=== PATIENT | female | born 1975 | race Caucasian/White ===

== ENCOUNTER 2016-06-01 18:09 | Observation (INO) | payer OTHER ==
[~2016-06-01] VITALS: Ht 167.6 cm; Wt 98.2 kg
[~2016-06-01 18:09] MED LIST: LAMI200T PO; LEVO125T4 PO; QUET1TAB9 PO; ZYRTTAB2 PO
[2016-06-01 18:16] VITALS: BP 130/86; PULSE 84; RESP 16; TEMP 98.7; O2SAT 97
[2016-06-01] MEDS ORDERED: PHEN1TAB84 PO (18:35)
[2016-06-01] MEDS ORDERED: MELA5TAB15 PO (18:35)
[2016-06-01] MEDS ORDERED: SERO400T PO (18:35)
--- NOTE | 2016-06-01 18:52 | PD ---
HPI Chief Complaint: Foreign Body Time Seen by Provider: 18:42 Travel History International Travel<30 days: No Contact w/Intl Traveler<30days: No Traveled to known affect area: No History of Present Illness HPI 40-year-old female is concerned that she has chicken cartilage or bone stuck in her throat. She says that yesterday around 2:00 she was eating and she felt that she swallowed something that was most likely cartilage. She feels like its been there ever since. She points to the sternal notch as the site. She has not been short of breath. She has been eating today when she says she has to cut her food into small pieces and chew it quite a bit. She has not been able to take her pills. PFSH Past Medical History ?: Not LMP: 05/17/16 Social History Alcohol Use: No Tobacco Use: No Substance Use: No Allergies-Medications (Allergen,Severity, Reaction): Coded Allergies: Clindamycin (Verified Allergy, Severe, anaphalaxis, 06/01/16) Keflex (Verified Allergy, Severe, anaphalaxis, 06/01/16) Penicillin (Verified Allergy, Severe, anaphalaxis, 06/01/16) Amoxicillin (Verified Allergy, Mild, Sore throat, hurt to swallow , ) Reported Meds & Prescriptions Reported Meds & Active Scripts Active Reported Adipex-P (Phentermine HCl) 37.5 Mg Tab Unknown Dose PO DAILY Melatonin 5 Mg Tab 5 Mg PO HS Seroquel (Quetiapine Fumarate) 400 Mg Tab 400 Mg PO DAILY Levothyroxine (Levothyroxine Sodium) 125 Mcg Tab 150 Mcg PO DAILY Lamictal (Lamotrigine) 200 Mg Tab 400 Mg PO DAILY Review of Systems General / Constitutional: No: Fever, Chills Eyes: No: Diploplia, Blurred Vision HENT: No: Headaches, Vertigo Cardiovascular: No: Chest Pain or Discomfort, Palpitations Respiratory: No: Cough, Shortness of Breath Gastrointestinal: Positive: Dysphagia Genitourinary: No: Urgency, Frequency Musculoskeletal: No: Myalgias, Arthralgias Skin: No Rash, No Itching Neurologic: No: Weakness, Dizziness Psychiatric: Positive: Mood Disorder Hematologic/Lymphatic: No: Easy Bruising Physical Exam Narrative GENERAL: Well-developed female SKIN: Focused skin assessment warm/dry. HEAD: Atraumatic. Normocephalic. EYES: Pupils equal and round. No scleral icterus. No injection or drainage. ENT: No nasal bleeding or discharge. Mucous membranes pink and moist. NECK: Trachea midline. No JVD. No palpable mass CARDIOVASCULAR: Regular rate and rhythm. No murmur appreciated. RESPIRATORY: No accessory muscle use. Clear to auscultation. Breath sounds equal bilaterally. GASTROINTESTINAL: Abdomen soft, non-tender, nondistended. Hepatic and splenic margins not palpable. MUSCULOSKELETAL: No obvious deformities. No clubbing. No cyanosis. No edema. NEUROLOGICAL: Awake and alert. No obvious cranial nerve deficits. Motor grossly within normal limits. Normal speech. PSYCHIATRIC: Appropriate mood and affect; insight and judgment normal. Data Data Last Documented VS Vital Signs Date Time Temp Pulse Resp B/P Pulse Ox O2 Delivery O2 Flow Rate FiO2 06/01/16 18:16 98.7 84 16 130/86 97 Orders Complete Blood Count With Diff (06/01/16 19:08) Basic Metabolic Panel (Bmp) (06/01/16 19:08) Ct Soft Tiss Neck W Iv Cont (06/01/16 19:08) Iohexol 350 Inj (Omnipaque 350 Inj) (06/01/16 20:38) Levofloxacin 750 Mg Premix Inj (Levaquin (06/01/16 21:15) Admit Order (Ed Use Only) (06/01/16 21:04) Labs Laboratory Tests Test 06/01/16 19:30 White Blood Count 7.8 TH/MM3 Red Blood Count 4.60 MIL/MM3 Hemoglobin 11.7 GM/DL Hematocrit 35.5 % Mean Corpuscular Volume 77.1 FL Mean Corpuscular Hemoglobin 25.5 PG Mean Corpuscular Hemoglobin 33.0 % Concent Red Cell Distribution Width 14.7 % Platelet Count 323 TH/MM3 Mean Platelet Volume 8.5 FL Neutrophils (%) (Auto) 66.7 % Lymphocytes (%) (Auto) 26.0 % Monocytes (%) (Auto) 5.9 % Eosinophils (%) (Auto) 0.9 % Basophils (%) (Auto) 0.5 % Neutrophils # (Auto) 5.2 TH/MM3 Lymphocytes # (Auto) 2.0 TH/MM3 Monocytes # (Auto) 0.5 TH/MM3 Eosinophils # (Auto) 0.1 TH/MM3 Basophils # (Auto) 0.0 TH/MM3 CBC Comment DIFF FINAL Differential Comment Sodium Level 140 MEQ/L Potassium Level 3.7 MEQ/L Chloride Level 102 MEQ/L Carbon Dioxide Level 27.4 MEQ/L Anion Gap 11 MEQ/L Blood Urea Nitrogen 20 MG/DL Creatinine 1.00 MG/DL Estimat Glomerular Filtration 62 ML/MIN Rate Random Glucose 87 MG/DL Calcium Level 9.4 MG/DL MDM Medical Decision Making Medical Screen Exam Complete: Yes Emergency Medical Condition: Yes Medical Record Reviewed: Yes Differential Diagnosis Differential includes esophagitis, foreign body, Narrative Course Case was discussed with Dr. Mcqueen. He recommends CT of the soft tissue of the neck. This has been done and shows no evidence of foreign body. There is however a tiny collection of air in the right paratracheal region of the superior mediastinum of indeterminate significance. Plan initially was to admit to [facility]. However I have called Gen. surgery and thoracic surgery and neither service will treat esophageal perforation. I have discussed the case with Dr. Ra Ruelas and the patient will be transferred to [facility] for further evaluation Diagnosis Primary Impression: Esophageal perforation Admitting Information Admitting Physician Requests: Observation Thomas Stein MD Jun 01, 2016 18:52
[2016-06-01 19:41] LABS: AUTOMATED NEUTROPHIL # 5.2 TH/MM3 (1.8-7.7); BASOPHIL % 0.5 % (0.0-2.0); EOSINOPHIL # 0.1 TH/MM3 (0-0.4); EOSINOPHIL % 0.9 % (0.0-4.0); HEMATOCRIT 35.5 % (35.0-46.0); HEMO FLAGS DIFF FINAL; MEAN CELL VOLUME 77.1 FL (80.0-100.0); MEAN CORPUSCULAR HEMOGLOBIN 25.5 PG (27.0-34.0); MONO % 5.9 % (0.0-8.0); NEUT % 66.7 % (16.0-70.0); PLATELET COUNT 323 TH/MM3 (150-450); RED CELL DISTRIBUTION WIDTH 14.7 % (11.6-17.2); WHITE BLOOD COUNT 7.8 TH/MM3 (4.0-11.0)
[2016-06-01 19:46] LABS: POTASSIUM 3.7 MEQ/L (3.5-5.1)
[2016-06-01 19:50] LABS: BICARBONATE 27.4 MEQ/L (21.0-32.0)
[2016-06-01] MEDS ORDERED: IOHEXOL 350 MG/ML 10 ML VIAL (for RAD DIAG) IV ONE (20:38)
--- NOTE | 2016-06-01 20:39 | RADHPO ---
EXAM DATE/TIME: 06/01/2016 20:04 [facility] COMPARISON: No previous studies available for comparison. INDICATIONS : Possible foreign body in throat. IV CONTRAST: 97 cc Omnipaque 350 (iohexol) IV RADIATION DOSE: 15.75 CTDIvol (mGy) MEDICAL HISTORY : None SURGICAL HISTORY : None. ENCOUNTER: Initial ACUITY: 2 days PAIN SCALE: 5/10 LOCATION: neck TECHNIQUE: Volumetric scanning of the neck was performed. Using automated exposure control and adjustment of th e mA and/or kV according to patient size, radiation dose was kept as low as reasonably achievable to obtain optimal diagnostic quality images. FINDINGS: NASOPHARYNX: The nasopharyngeal airway has a normal configuration. No mucosal thickening or mass is seen. OROPHARYNX: The intrinsic muscles of the tongue are symmetric. The tonsillar pillars are intact. The prevertebr al soft tissues are not thickened. LARYNX: The supraglottic, glottic, and infraglottic structures are intact. There is a tiny collection of air within the right paratracheal region in the superior mediastinum which is of indeterminate significan ce. No radiopaque foreign body is noted. PARAPHARYNGEAL: The parapharyngeal space is intact. SALIVARY GLANDS: The parotid and submandibular glands are intact. LYMPH NODES: No enlarged or necrotic-appearing nodes. THYROID: Homogeneous enhancement without evidence of nodule. BONES: Unremarkable. CONCLUSION: Tiny collection of air within the right paratracheal region of the superior mediastin um which is of indeterminate significance. No radiopaque foreign body identified. Robby Wilson MD on June 01, 2016 at 20:32 Board Certified Radiologist. This report was verified electronically.
[2016-06-01] MEDS ORDERED: ONDANSETRON HCL 4 MG/2 ML VIAL IVP PRN (21:15)
[2016-06-01] MEDS ORDERED: SODIUM CHLOR 0.9% 1000 ML INJ 1,000 ML IV SCH ×2 (21:15)
[2016-06-01] MEDS ORDERED: LEVOFLOXACIN 750 MG PREMIX INJ 150 ML IV ONE (21:15)
[2016-06-01] MEDS ORDERED: ACETAMINOPHEN 1000 MG/100 ML VIAL IV PRN (21:15)
[2016-06-01] MEDS ORDERED: MORPHINE SULFATE 4 MG/ML INJ IV PRN ×2 (21:15)
[2016-06-01] MEDS ORDERED: BISACODYL 10 MG SUPP RECTAL PRN (21:15)
[2016-06-01] MEDS ORDERED: SODIUM CHLORIDE 0.9% FLUSH 10 ML FLUSH IV FLUSH PRN (21:15)
[2016-06-01 22:00] VITALS: BP 131/71; PULSE 74; RESP 16; TEMP 98.4; O2SAT 98
[2016-06-02] MEDS ORDERED: SODIUM CHLORIDE 0.9% FLUSH 10 ML FLUSH IV FLUSH SCH (09:00)
[2016-06-27] MEDS ORDERED: LEVO125T4 PO (16:30)
[2016-08-02] MEDS ORDERED: LEVO.125 PO (12:41)
[2016-08-02] MEDS ORDERED: SERO400T PO (12:41)
[2016-08-02] MEDS ORDERED: LAMI200T PO (12:41)
[2016-08-08] MEDS ORDERED: LAMI200T PO (14:21)
== END 2016-06-02 00:15 | disposition short-term general hospital (02) ==
LOC: PHED 18:09 → PHEDA 21:06 → UNDODISOB 06-02 00:15
PROVIDERS: ADMIT Hospitalist; ATTEND Hospitalist
DX: T17.228A Food in pharynx causing other injury, initial encounter (principal)
CPT/HCPCS: 70491; 80048; 85025; 99284; G0378; J1956; J7030; Q9967

== ENCOUNTER 2017-05-19 08:59 | Emergency (ER) | payer OTHER ==
[~2017-05-19] VITALS: Ht 167.6 cm; Wt 104.3 kg
[~2017-05-19 08:59] MED LIST changes: +LEVO.125 PO; -LEVO125T4 PO; +MELA5 PO; +PHEN1TAB84 PO; -QUET1TAB9 PO; +SERO400T PO; +TOPI25 PO; -ZYRTTAB2 PO
[2017-05-19 09:09] VITALS: BP 121/82; PULSE 78; RESP 16; TEMP 98.9; O2SAT 97
[2017-05-19 09:29] LABS: BILIRUBIN, URINE NEG (NEG); BLOOD, URINE LARGE (NEG); GLUCOSE,URINE NEG (NEG); KETONE, URINE NEG (NEG); NITRITE,URINE NEG (NEG); PH, URINE 6.5 (5.0-8.5); URINE LEUKOCYTE ESTERASE SMALL (NEG)
[2017-05-19 09:30] LABS: URINE COLOR PINK (YELLW/STRAW)
[2017-05-19 09:37] LABS: RBC, URINE 15-19 /hpf (0-3); SQUAMOUS EPITHELIAL CELL URINE 0-2 /hpf (0-5); WBC, URINE 0-2 /hpf (0-5)
--- NOTE | 2017-05-19 09:47 | PD ---
HPI Chief Complaint: Complaint Time Seen by Provider: 09:24 Travel History International Travel<30 days: No Contact w/Intl Traveler<30days: No Traveled to known affect area: No History of Present Illness HPI 41-year-old female here with hematuria times one week. She is also reporting mild URI-like symptoms 3 days. Denies fever or chills. No abdominal pain. No dysuria. She reports her urine is blood tinged with occasional clots. She is never had symptoms like this before. She denies vaginal discharge or bleeding. Denies any new medications. No aggravating or alleviating factors. Symptoms severity moderate. PFSH Past Medical History Bipolar Disorder: Yes Diminished Hearing: No Thyroid Disease: Yes Tetanus Vaccination: Unknown ?: Not LMP: 05/04/17 Tubal Ligation: Yes Social History Alcohol Use: Yes (OCC) Tobacco Use: No Substance Use: No Allergies-Medications (Allergen,Severity, Reaction): Coded Allergies: cephalexin (Verified Allergy, Severe, anaphalaxis, 05/19/17) clindamycin (Verified Allergy, Severe, anaphalaxis, 05/19/17) penicillin G (Verified Allergy, Severe, anaphalaxis, 05/19/17) amoxicillin (Verified Allergy, Mild, Sore throat, hurt to swallow , ) Reported Meds & Prescriptions Reported Meds & Active Scripts Active Seroquel (Quetiapine Fumarate) 400 Mg Tab 400 Mg PO DAILY Synthroid (Levothyroxine Sodium) 125 Mcg Tab 125 Mcg PO DAILY Review of Systems Except as stated in HPI: all other systems reviewed are Neg General / Constitutional: No: Fever Eyes: No: Visual changes HENT: Positive: Congestion, No: Headaches Respiratory: Positive: Cough Gastrointestinal: No: Abdominal Pain Genitourinary: Positive: Hematuria, No: Dysuria Musculoskeletal: No: Pain Skin: No Rash Neurologic: No: Weakness Psychiatric: No: Depression Physical Exam Narrative GENERAL: Alert well-appearing 41-year-old female SKIN: Warm and dry. HEAD: Normocephalic. EYES: No injection or drainage. NECK: Supple CARDIOVASCULAR: Regular rate and rhythm without murmurs, gallops, or rubs. RESPIRATORY: Breath sounds equal bilaterally. No accessory muscle use. GASTROINTESTINAL: Abdomen soft, non-tender, nondistended. No rebound or guarding. MUSCULOSKELETAL: No cyanosis, or edema. BACK: Nontender without obvious deformity. No CVA tenderness. Data Data Last Documented VS Vital Signs Date Time Temp Pulse Resp B/P (MAP) Pulse Ox O2 Delivery O2 Flow Rate FiO2 05/19/17 09:09 98.9 78 16 121/82 (95) 97 Orders Orders Urinalysis - C+S If Indicated (05/19/17 09:15) Ed Urine Pregnancytest Poc (05/19/17 09:15) Complete Blood Count With Diff (05/19/17 09:29) Basic Metabolic Panel (Bmp) (05/19/17 09:29) Iv Access Insert/Monitor (05/19/17 09:31) Ct Abd/Pel W/O Iv Contrast (05/19/17 09:48) Labs Laboratory Tests Test 05/19/17 09:15 05/19/17 09:35 Urine Collection Type CLEAN CATCH Urine Color PINK Urine Turbidity CLEAR Urine pH 6.5 Urine Specific [place] LESS/EQUAL 1.005 Urine Protein TRACE mg/dL Urine Glucose (UA) NEG mg/dL Urine Ketones NEG mg/dL Urine Occult Blood LARGE Urine Nitrite NEG Urine Bilirubin NEG Urine Urobilinogen 0.2 MG/DL Urine Leukocyte Esterase SMALL Urine RBC 15-19 /hpf Urine WBC 0-2 /hpf Urine Squamous Epithelial Cells 0-2 /hpf Microscopic Urinalysis Comment CULT NOT INDICATED White Blood Count 5.8 TH/MM3 Red Blood Count 4.16 MIL/MM3 Hemoglobin 12.0 GM/DL Hematocrit 34.4 % Mean Corpuscular Volume 82.8 FL Mean Corpuscular Hemoglobin 28.8 PG Mean Corpuscular Hemoglobin Concent 34.8 % Red Cell Distribution Width 13.6 % Platelet Count 267 TH/MM3 Mean Platelet Volume 8.1 FL Neutrophils (%) (Auto) 69.7 % Lymphocytes (%) (Auto) 20.5 % Monocytes (%) (Auto) 6.1 % Eosinophils (%) (Auto) 3.1 % Basophils (%) (Auto) 0.6 % Neutrophils # (Auto) 4.0 TH/MM3 Lymphocytes # (Auto) 1.2 TH/MM3 Monocytes # (Auto) 0.4 TH/MM3 Eosinophils # (Auto) 0.2 TH/MM3 Basophils # (Auto) 0.0 TH/MM3 CBC Comment DIFF FINAL Differential Comment Blood Urea Nitrogen 12 MG/DL Creatinine 0.80 MG/DL Random Glucose 101 MG/DL Calcium Level 8.3 MG/DL Sodium Level 140 MEQ/L Potassium Level 4.0 MEQ/L Chloride Level 107 MEQ/L Carbon Dioxide Level 25.4 MEQ/L Anion Gap 8 MEQ/L Estimat Glomerular Filtration Rate 80 ML/MIN MDM Medical Decision Making Medical Screen Exam Complete: Yes Emergency Medical Condition: Yes Differential Diagnosis UTI, nephrolithiasis, neurologic malignancy Narrative Course 41-year-old female here with hematuria times one week. She is nontoxic- appearing. UA: Non-suggestive of infection RBC 15-19 CBC: No acute abnormalities. H/H: 12/34.4 BMP: No acute abnormalities. BUN/Cr: 12/0.8 CT abdomen and pelvis: 1 millimeter nonobstructing right ureter stone. No hydronephrosis. Findings were discussed with patient. She will be referred to urologist for follow-up. She was instructed to push fluids. Return precautions were discussed. Diagnosis Primary Impression: Renal stone Referrals: Urologist Additional Instructions: Stay well hydrated. Medication as directed. Follow-up with her primary doctor. Scripts Hydrocodone-Acetaminophen ([place]) 5 Mg-325 Mg Tab 1 TAB PO Q6H Y for PAIN, #10 TAB 0 Refills Prov: Tana Mcleod 05/19/17 Tamsulosin (Flomax) 0.4 Mg Cap 0.4 MG PO HS for Manage Prostate Problems, #30 CAP 0 Refills Prov: Tana Mcleod 05/19/17 Disposition: 01 DISCHARGE HOME Condition: Stable Tana Mcleod May 19, 2017 09:47
[2017-05-19 10:16] LABS: BICARBONATE 25.4 MEQ/L (21.0-32.0); CALCIUM 8.3 MG/DL (8.5-10.1)
--- NOTE | 2017-05-19 10:19 | RADRPT ---
EXAM DATE/TIME: 05/19/2017 10:00 [facility] COMPARISON: No previous studies available for comparison. INDICATIONS : Hematuria. ORAL CONTRAST: No oral contrast ingested. RADIATION DOSE: 23.73 CTDIvol (mGy) MEDICAL HISTORY : None SURGICAL HISTORY : Tubal ligation. ENCOUNTER: Initial ACUITY: 3 days PAIN SCALE: 0/10 LOCATION: pelvis TECHNIQUE: Volumetric scanning of the abdomen and pelvis was performed. Using automated exposure control and ad justment of the mA and/or kV according to patient size, radiation dose was kept as low as reasonably achievable to obtain optimal diagnostic quality images. DICOM format image data is available electro nically for review and comparison. FINDINGS: LOWER LUNGS: The visualized lower lungs are clear. LIVER: Homogeneous low-density without lesion. There is no dilation of the biliary tree. No calcified gall stones. SPLEEN: Normal size without lesion. PANCREAS: Within normal limits. KIDNEYS: Normal in size and shape. There is no mass, stone, or hydronephrosis. There is a punctate, 1 mm ston e identified within the distal right ureter just proximal to the UVJ. The left ureter is unremarkable . ADRENAL GLANDS: Within normal limits. VASCULAR: There is no aortic aneurysm. BOWEL/MESENTERY: The stomach, small bowel, and colon demonstrate no acute abnormality. There is no free intraperitone al air or fluid. ABDOMINAL WALL: Within normal limits. RETROPERITONEUM: There is no lymphadenopathy. BLADDER: No wall thickening or mass. REPRODUCTIVE: Within normal limits. INGUINAL: There is no lymphadenopathy or hernia. MUSCULOSKELETAL: Within normal limits for patient age. CONCLUSION: There is a small, 1 mm, distal right ureteral stone. Not associated with hydronephrosis. Fatty infilt ration of the liver.. Hannah Murillo MD on May 19, 2017 at 10:14 Board Certified Radiologist. This report was verified electronically.
[2017-05-19 10:20] LABS: BASOPHIL % 0.6 % (0.0-2.0); CREATININE 0.8 MG/DL (0.50-1.00); EOSINOPHIL # 0.2 TH/MM3 (0-0.4); EOSINOPHIL % 3.1 % (0.0-4.0); HEMATOCRIT 34.4 % (35.0-46.0); LYMPH % 20.5 % (9.0-44.0); LYMPHOCYTE # 1.2 TH/MM3 (1.0-4.8); MEAN CELL VOLUME 82.8 FL (80.0-100.0); MEAN CORPUSCULAR HEMOGLOBIN 28.8 PG (27.0-34.0); MEAN CORPUSCULAR HGB CONC 34.8 % (32.0-36.0); MEAN PLATELET VOLUME 8.1 FL (7.0-11.0); MONO % 6.1 % (0.0-8.0); MONOCYTE # 0.4 TH/MM3 (0-0.9); NEUT % 69.7 % (16.0-70.0); PLATELET COUNT 267 TH/MM3 (150-450); RED BLOOD COUNT 4.16 MIL/MM3 (4.00-5.30); RED CELL DISTRIBUTION WIDTH 13.6 % (11.6-17.2); WHITE BLOOD COUNT 5.8 TH/MM3 (4.0-11.0)
[2017-05-19] MEDS ORDERED: TAMS5CAP PO (10:46)
[2017-05-19] MEDS ORDERED: NORC5TAB PO (10:47)
== END 2017-05-19 11:04 | disposition home or self-care (01) ==
LOC: PHEFT 08:59
DX: N20.0 Calculus of kidney (principal); R05 Cough
CPT/HCPCS: 74176; 80048; 81001; 84703; 85025; 99284